=== PATIENT | male | born 1945 | race Caucasian/White ===

== ENCOUNTER 2024-02-08 10:31 | Outpatient (CLI) | payer MEDICARE, OTHER ==
[2024-02-08] MEDS ORDERED: Iopamidol 300 61% 100 ML VIAL FS ONE (15:08)
== END 2024-02-08 10:32 | disposition home or self-care (01) ==
LOC: CSHCT 10:31
PROVIDERS: ATTEND Surgery
DX: K57.92 Diverticulitis of intestine, part unspecified, without perforation or abscess without bleeding (principal); K57.30 Diverticulosis of large intestine without perforation or abscess without bleeding; N28.1 Cyst of kidney, acquired; K76.89 Other specified diseases of liver; I25.10 Atherosclerotic heart disease of native coronary artery without angina pectoris; I25.84 Coronary atherosclerosis due to calcified coronary lesion; I70.0 Atherosclerosis of aorta
CPT/HCPCS: 74177; 82565